=== PATIENT | female | born 1950 | race Caucasian/White ===

== ENCOUNTER 2021-04-10 12:49 | Day surgery (SDC) | payer MEDICARE ==
[~2021-04-10] VITALS: Ht 152.4 cm; Wt 98.5 kg
[~2021-04-10 12:49] MED LIST: ALBU2.5V5; ALBU90OI INH; ALBU90OI6; ALBU90OI6 INH; AMERGE PO; AMOCLA875 PO; ATOR10 PO; AZIT250 PO; Advil200 M1 PO; Artificial Tear15 M4 BOTHEYES; BECL40OI INH; CALCIUM + VITA1 EACH; CHOL10002 PO; CONEST.9 PO; DHEA 10 MG TAB1 EACH PO; DULERA 100 MCG/13 GM INH; DULERA 200 MCG/13 GM INH; FISH1000 PO; FLUSAL2505; GUAI600T33 PO; Inderal80 MG PO; LISI20 PO; LIVALO2 MG PO; MONT10T PO; MOTION RELIEF25 MG PO; MULTI VITAMIN1 EACH PO; NARA2.5; NARATRIPTAN PO; Norco 5-325 Ta1 EACH PO; OLIVE LEAF EXT250 MG PO; PRED10 PO; PRED20 PO; PROP80ER; Prilosec Otc20 MG PO; ROXICODONE5 MG PO; SLEEP PO; SYMBICORT 160-4.6 GM; Stool Softener100 MG PO; Sudogest120 MG PO; Synthroid25 MCG PO; TAB-A-VITE-MIN1 EACH; THEO400 PO; THYR60; TIZA4 PO; TOPROL XL50 M1 PO; Zofran Odt8 MG SL; [UNRECOGNIZED DRUG - OTHER] PO; beta blocker
--- NOTE | 2021-04-10 13:33 | NUR ---
04/10/21 1333 Daysi Gee FIRST ATTEMPT MISSED BY RAFY IN RIGHT HAND. SECOND ATTEMPT SUCCESFUL IN THE LEFT HAND BY RAFY. PT TOW.
== END 2021-04-10 14:55 | disposition home or self-care (01) ==
LOC: ORSCSDS 12:49
PROVIDERS: Internal Medicine Gastroenterology
PROC: 0DBM8ZX Excision of Descending Colon, Via Natural or Artificial Opening Endoscopic, Diagnostic (ICD-10-PCS; principal; 2021-04-10 14:00)
PROC: 0DBK8ZX Excision of Ascending Colon, Via Natural or Artificial Opening Endoscopic, Diagnostic (ICD-10-PCS; principal; 2021-04-10 14:00)
DX: Z12.11 Encounter for screening for malignant neoplasm of colon (principal); Z86.010 Personal history of colon polyps; D12.2 Benign neoplasm of ascending colon; D12.4 Benign neoplasm of descending colon; K57.30 Diverticulosis of large intestine without perforation or abscess without bleeding; I10 Essential (primary) hypertension; Z99.81 Dependence on supplemental oxygen; E66.9 Obesity, unspecified; Z68.41 Body mass index [BMI] 40.0-44.9, adult; Z79.899 Other long term (current) drug therapy
CPT/HCPCS: 88305; J2704; J7120

== ENCOUNTER 2021-12-06 08:40 | Emergency (ER) | payer MEDICARE ==
[~2021-12-06] VITALS: Ht 152.4 cm; Wt 94.3 kg
[2021-12-06] MEDS ORDERED: GUAI600T33 PO (09:17)
[2021-12-06] MEDS ORDERED: ONDA4 PO (09:17)
== END 2021-12-06 09:30 | disposition home or self-care (01) ==
LOC: ER 08:40
DX: U07.1 COVID-19 (principal); J45.909 Unspecified asthma, uncomplicated; I10 Essential (primary) hypertension; E03.9 Hypothyroidism, unspecified; G43.909 Migraine, unspecified, not intractable, without status migrainosus; E78.5 Hyperlipidemia, unspecified
CPT/HCPCS: 99283